=== PATIENT | male | born 1950 | race Caucasian/White ===

== ENCOUNTER 2022-07-10 08:28 | Emergency (ER) | payer MEDICARE, OTHER ==
[2022-07-10] MEDS ORDERED: Iopamidol 755 Mg/ML 100 ML Bottle IVPUSH ONE (11:53)
[2022-07-10] MEDS ORDERED: Sodium Chloride 0.9% 10 ML Syringe FLUSH PRN (11:53)
[2022-07-10] MEDS ORDERED: Sodium Chloride 0.9% 100 ML IV SCH (12:00)
[2022-07-10] MEDS ORDERED: Apixaban 5 MG Tab PO ONE (12:45)
== END 2022-07-10 13:05 | disposition home or self-care (01) ==
LOC: JD.ED 08:28
DX: I26.99 Other pulmonary embolism without acute cor pulmonale (principal)
CPT/HCPCS: 36415; 71046; 71275; 80053; 84484; 85025; 85379; 93005; 99285; A9270; J3490; Q9967